=== PATIENT | male | born 1960 | race Caucasian/White ===

== ENCOUNTER → 2017-07-21 | Outpatient (CLI) | payer OTHER ==
[~2017-07-21] VITALS: Ht 167.6 cm; Wt 90.7 kg
[~2017-07-21] MED LIST: DILANTIN INFATA50 MG PO; DILANTIN100 MG PO; LAMICTAL150 M1 PO; LO-DOSE ASPIRIN81 M2 PO
== END | disposition home or self-care (01) ==
LOC: AMB 09:56
DX: C20 Malignant neoplasm of rectum (principal); D12.2 Benign neoplasm of ascending colon; D12.3 Benign neoplasm of transverse colon; Z83.71 Family history of colonic polyps; G40.909 Epilepsy, unspecified, not intractable, without status epilepticus; Z79.82 Long term (current) use of aspirin; I34.1 Nonrheumatic mitral (valve) prolapse; E66.9 Obesity, unspecified; Z85.828 Personal history of other malignant neoplasm of skin; Z82.49 Family history of ischemic heart disease and other diseases of the circulatory system
CPT/HCPCS: 88304; 93005; J2250; J2405

== ENCOUNTER 2017-08-20 22:03 | Inpatient (IN) | payer OTHER ==
[~2017-08-20] VITALS: Ht 167.6 cm; Wt 90.3 kg
[2017-08-21 07:07] VITALS: BP 181/94
[2017-08-21 16:41] VITALS: BP 169/87
[2017-08-21 19:31] VITALS: BP 143/83
[2017-08-21] MEDS ORDERED: DILANTIN INFATA50 MG PO (21:46)
[2017-08-21 23:27] VITALS: BP 166/75
[2017-08-22 03:01] VITALS: BP 137/83
[2017-08-22 07:09] LABS: HEMATOCRIT 37.3 % (38.0-50.0); MCH 31.1 PG (29.0-34.0); MCHC 33.2 G/DL (30.0-36.0); MCV 93.5 FL (86-99); PLATELET COUNT 171 K/uL (156-360); RBC DIS.WIDTH-CV 13.1 % (11.8-14.6); RBC DIS.WIDTH-SD 45.1 % (39-53); RED BLOOD COUNT 3.99 M/uL (4.00-5.50); WHITE BLOOD COUNT 12.1 K/uL (4.1-10.2)
[2017-08-22 07:10] LABS: HEMOGLOBIN 12.4 G/DL (12.5-16.6)
[2017-08-22 07:22] LABS: CHLORIDE 102 MEQ/L (99-109); CREATININE 1.1 MG/DL (0.6-1.3); GFR ESTIMATE (CALCULATED) > 59 mL/min/ (58.99-99999); GLUCOSE 120 mg/dL (70-99); POTASSIUM 5.1 MEQ/L (3.7-5.4); SODIUM 137 MEQ/L (136-147); UREA NITROGEN (BUN) 10 mg/dL (9-23)
[2017-08-22 09:12] VITALS: BP 156/70
[2017-08-22 12:21] VITALS: BP 140/77
[2017-08-22 17:35] VITALS: BP 145/71
[2017-08-22 19:14] VITALS: BP 139/72
[2017-08-22 22:48] VITALS: BP 155/81
[2017-08-23] VITALS (7 sets, daily range): BP systolic 141–185; BP diastolic 80–90
[2017-08-23 06:33] LABS: BASOPHIL (%) 0.3 % (0-1); EOSINOPHIL (%) 0.2 % (0-5); HEMATOCRIT 38.9 % (38.0-50.0); HEMOGLOBIN 12.6 G/DL (12.5-16.6); LYMPHOCYTE (%) 6.4 % (15-42); MCH 30.2 PG (29.0-34.0); MCHC 32.4 G/DL (30.0-36.0); MCV 93.3 FL (86-99); MONOCYTE (%) 8.5 % (3-12); NEUTROPHIL (%) 84.1 % (45-76); PLATELET COUNT 177 K/uL (156-360); RBC DIS.WIDTH-CV 13.1 % (11.8-14.6); RBC DIS.WIDTH-SD 44.9 % (39-53); RED BLOOD COUNT 4.17 M/uL (4.00-5.50); WHITE BLOOD COUNT 11.5 K/uL (4.1-10.2)
[2017-08-23 06:34] LABS: IMMATURE GRANULOCYTE (%) 0.5 % (0.0-0.7); LYMPHOCYTE COUNT 0.7 K/uL (1.0-2.8); NEUTROPHIL COUNT 9.7 K/uL (1.8-6.4)
[2017-08-23 07:04] LABS: CHLORIDE 103 MEQ/L (99-109); CREATININE 0.8 MG/DL (0.6-1.3); GFR ESTIMATE (CALCULATED) > 59 mL/min/ (58.99-99999); GLUCOSE 102 mg/dL (70-99); SODIUM 140 MEQ/L (136-147); UREA NITROGEN (BUN) 10 mg/dL (9-23)
[2017-08-24 03:48] VITALS: BP 134/87
[2017-08-24 05:37] LABS: BASOPHIL (%) 0.3 % (0-1); EOSINOPHIL (%) 0.4 % (0-5); HEMATOCRIT 36.7 % (38.0-50.0); HEMOGLOBIN 12.3 G/DL (12.5-16.6); IMMATURE GRANULOCYTE (%) 0.9 % (0.0-0.7); LYMPHOCYTE (%) 10.1 % (15-42); MCH 30.6 PG (29.0-34.0); MCHC 33.5 G/DL (30.0-36.0); MCV 91.3 FL (86-99); MONOCYTE (%) 8.1 % (3-12); MONOCYTE COUNT 0.8 K/uL (0-0.8); NEUTROPHIL (%) 80.2 % (45-76); NEUTROPHIL COUNT 8.1 K/uL (1.8-6.4); PLATELET COUNT 182 K/uL (156-360); RBC DIS.WIDTH-CV 12.8 % (11.8-14.6); RBC DIS.WIDTH-SD 42.7 % (39-53); RED BLOOD COUNT 4.02 M/uL (4.00-5.50); WHITE BLOOD COUNT 10.1 K/uL (4.1-10.2)
[2017-08-24 06:29] LABS: CHLORIDE 102 MEQ/L (99-109); CREATININE 0.7 MG/DL (0.6-1.3); GFR ESTIMATE (CALCULATED) > 59 mL/min/ (58.99-99999); GLUCOSE 102 mg/dL (70-99); POTASSIUM 3.3 MEQ/L (3.7-5.4); SODIUM 138 MEQ/L (136-147); UREA NITROGEN (BUN) 8 mg/dL (9-23)
[2017-08-24 07:12] VITALS: BP 165/92
[2017-08-24 12:04] VITALS: BP 179/87
[2017-08-24 15:20] VITALS: BP 172/88
[2017-08-24 19:06] VITALS: BP 183/91
[2017-08-24 23:07] VITALS: BP 180/88
[2017-08-25 05:45] VITALS: BP 175/85
[2017-08-25 06:24] LABS: BASOPHIL (%) 0.3 % (0-1); EOSINOPHIL (%) 1.5 % (0-5); EOSINOPHIL COUNT 0.1 K/uL (0-0.3); HEMOGLOBIN 12.3 G/DL (12.5-16.6); IMMATURE GRANULOCYTE (%) 0.5 % (0.0-0.7); LYMPHOCYTE (%) 14.4 % (15-42); LYMPHOCYTE COUNT 1.1 K/uL (1.0-2.8); MCH 30.7 PG (29.0-34.0); MCHC 34.2 G/DL (30.0-36.0); MCV 89.8 FL (86-99); MONOCYTE (%) 9.4 % (3-12); MONOCYTE COUNT 0.7 K/uL (0-0.8); NEUTROPHIL (%) 73.9 % (45-76); NEUTROPHIL COUNT 5.5 K/uL (1.8-6.4); PLATELET COUNT 184 K/uL (156-360); RBC DIS.WIDTH-CV 12.7 % (11.8-14.6); RBC DIS.WIDTH-SD 41.7 % (39-53); RED BLOOD COUNT 4.01 M/uL (4.00-5.50); WHITE BLOOD COUNT 7.5 K/uL (4.1-10.2)
[2017-08-25 06:46] LABS: CHLORIDE 102 MEQ/L (99-109); CREATININE 0.7 MG/DL (0.6-1.3); GFR ESTIMATE (CALCULATED) > 59 mL/min/ (58.99-99999); GLUCOSE 91 mg/dL (70-99); SODIUM 141 MEQ/L (136-147); UREA NITROGEN (BUN) 6 mg/dL (9-23)
[2017-08-25 07:27] VITALS: BP 160/90
[2017-08-25] MEDS ORDERED: ULTRAM50 MG PO (09:29)
== END 2017-08-25 10:45 | disposition home or self-care (01) | DRG 334 ==
LOC: CANRESERV 22:03 → ENRESERV 22:03 → 5EAST 08-21 06:20 → 2SOUTH 08-21 06:20 → EDSTATUS 08-21 08:54 → 2SOUTH 08-21 08:56 → SDC 08-21 11:34 → ENRESERV 08-21 12:35 → 2SOUTH 08-21 15:06 → 5EAST 08-21 16:05
PROVIDERS: Physician Assistant; Surgery
DX: C20 Malignant neoplasm of rectum (principal); K63.89 Other specified diseases of intestine; E66.9 Obesity, unspecified; K76.0 Fatty (change of) liver, not elsewhere classified; N28.1 Cyst of kidney, acquired; N40.0 Benign prostatic hyperplasia without lower urinary tract symptoms; I34.0 Nonrheumatic mitral (valve) insufficiency; G40.909 Epilepsy, unspecified, not intractable, without status epilepticus; Z68.32 Body mass index [BMI] 32.0-32.9, adult; Z79.82 Long term (current) use of aspirin; Z86.010 Personal history of colon polyps; Z87.891 Personal history of nicotine dependence; Z82.49 Family history of ischemic heart disease and other diseases of the circulatory system
CPT/HCPCS: 36415; 80048; 81003; 82378; 85025; 85027; 86850; 86900; 86901; 88309; 94799; J0330; J0690; J1170; J1200; J1885; J2001; J2250; J2405; J2710; J2765; J2795; J3475; J7120; J7643; S0030; S0074

== ENCOUNTER 2017-10-27 10:36 | Day surgery (SDC) | payer OTHER ==
[~2017-10-27] VITALS: Ht 167.6 cm; Wt 86.1 kg
[~2017-10-27 10:36] MED LIST changes: +ULTRAM50 MG PO; +XELODA500 MG PO
[2017-10-27 11:03] VITALS: BP 175/84
[2017-10-27 14:45] VITALS: BP 162/83
[2017-10-27] MEDS ORDERED: NORCO 5/3251 TABLET PO (15:00)
[2017-10-27 15:17] VITALS: BP 145/80
== END 2017-10-27 15:26 | disposition home or self-care (01) ==
LOC: SDC 10:36
PROC: 05H533Z Insertion of Infusion Device into Right Subclavian Vein, Percutaneous Approach (ICD-10-PCS; principal; 2017-10-27)
PROC: B5161ZA Fluoroscopy of Right Subclavian Vein using Low Osmolar Contrast, Guidance (ICD-10-PCS; principal; 2017-10-27)
DX: Z45.2 Encounter for adjustment and management of vascular access device (principal); I87.8 Other specified disorders of veins; C20 Malignant neoplasm of rectum; Z90.49 Acquired absence of other specified parts of digestive tract; Z92.21 Personal history of antineoplastic chemotherapy; Z92.3 Personal history of irradiation; E66.9 Obesity, unspecified; Z68.30 Body mass index [BMI] 30.0-30.9, adult; G40.909 Epilepsy, unspecified, not intractable, without status epilepticus; Z82.49 Family history of ischemic heart disease and other diseases of the circulatory system
CPT/HCPCS: 71045; C1751; J0690; J2250; J3010